=== PATIENT | female | born 1955 | race Caucasian/White ===

== ENCOUNTER 2018-03-31 07:06 | Day surgery (SDC) | payer BC, SELFPAY ==
[2018-03-31 07:33] VITALS: BP 141/83; PULSE 65; RESP 16; TEMP 37; O2SAT 100
[2018-03-31] MEDS: Lactated Ringers 1,000 ML 30 ML IV (08:10)
--- NOTE | 2018-03-31 09:38 | W.COLOREPORT ---
Date of service: 03/31/18 Time of Service: 09:39 Colonoscopy Report Date of procedure: 03/31/18 Pre-op diagnosis general: screening colonoscopy Post-op diagnosis procedure note: same Procedure: screening colonoscopy Surgeon: Hua Fuchs III Anesthesia proc note operative: MAC Pathology: none sent Complications: None Disposition: PACU Prep: José MiguelYTEFIDEL Procedure Description: After informed consent was obtained the patient was taken to the procedure room and placed in a left decubitous position. Monitors were applied and a time out was done. The patients name, date of , procedure, allergies to medications and metal in their body was reviewed. The patient was then sedated. Once sedated and comfortable a rectal exam was done. External exam was normal. Internal exam revealed a normal sphincter tone and no palpable masses. The scope was then introduced and retrofelexed. No internal hemorrhoids were identified. The scope was then advanced to the cecum minimal difficulty tight turn at the TI juction. The TI and appendiceal orifice were identified. The prep was adequate. The scope was then slowly retracted over 6 minutes back into the rectum. No Polyps were removed. The scope was removed and the patient was woken up and taken back to Same day surgery in stable condition. The patient tolerated the procedure well and there were no immediate complications. Follow up: The patient should follow up in 10 years unless they develop changes in bowel habits or other new gastrointestinal complaints.
--- NOTE | 2018-03-31 09:41 | W.PM.DSUDISC ---
Discharge Plan Disposition Patient Disposition: HOME Condition: Stable Discharge Details Reason For Visit: screening colonoscopy Attending Provider: Hua Fuchs III Primary Care Provider: Mala Thurman Home Meds and New Rx's Prescriptions: Continued bisacodyl [Dulcolax (bisacodyl)] 5 mg tablet,delayed release (DR/EC) 5 mg PO ONCE Qty: 4 RF: 0 polyethylene glycol 3350 17 gram/dose powder 255 g PO ONCE Qty: 255 RF: 0 calcium carbonate [Calcium 500] 500 MG tablet 500 mg PO DAILY RF: 0 multivitamin 1 EACH capsule 1 ea PO DAILY RF: 0 Vitamin D3 Complete 1 EACH tablet 1 ea PO DAILY RF: 0 Discharge Instructions Activity:: Activity as Tolerated Diet:: As Tolerated Discharge Orders Discharge Orders: Discharge Order (Routine); Ordered 03/31/18 Ordered By: Hua Fuchs III DS: Diagnosis Discharge Diagnosis (1) Encounter for screening colonoscopy: Status: Acute
[2018-03-31 10:07] VITALS: BP 112/80; PULSE 63; RESP 16; TEMP 36.5; O2SAT 99
== END 2018-03-31 10:35 | disposition home or self-care (01) ==
PROVIDERS: PCP Nurse Practitioner; Visit Provider Surgery
PROC: 0DJD8ZZ Inspection of Lower Intestinal Tract, Via Natural or Artificial Opening Endoscopic (ICD-10-PCS; CPT 45378; principal; 2018-03-31 08:15)
DX: Z12.11 Encounter for screening for malignant neoplasm of colon (principal)
CPT/HCPCS: 45378

== ENCOUNTER 2020-03-07 01:17 | Outpatient (CLI) | payer BC, SELFPAY ==
--- NOTE | 2020-03-07 09:41 | DI.MAMMO_ITS ---
EXAM: MG MAMMO SCREENING 60 MIN DUR CLINICAL HISTORY: SCREENING, H/O RT BREAST CA,S/P MASTECTOMY,C50.911. TECHNIQUE: Unilateral left full field digital CC and MLO mammographic images were obtained with 3D t omosynthesis and utilizing computer aided detection (CAD). There has been prior right mastectomy in 2 008 COMPARISON: Prior outside mammograms dating back to 2009, the most recent being January 2018 . FINDINGS: There are no CAD designations in left breast. There are no spiculated masses nor malignant appearing microcalcification groups. There is no signif icant architectural distortion nor skin thickening-retraction. IMPRESSION: No radiographic evidence of malignancy. BI-RADS Category 1 - Negative Breast Density - Category B - Scattered areas of fibroglandular density Breast density Category C or D implies that the patient has dense breast tissue. Dense breast tissue can make it harder to find cancer on a mammogram. Dense breast tissue is also associated with an incr eased risk of breast cancer. This information about the result of the mammogram report was provided to the patient to raise their awareness. Use this report when you speak with the patient about their risks for breast cancer, which includes their family history. At that time, you may recommend additional screening tests (Ultrasoun d or MRI) as these tests may add significant information. A negative radiographic report should not delay biopsy if a dominant or clinically suspicious mass is present. Up to ten percent of cancers are not identified on mammography. A negative report may reinforce clinical impression. Adenosis and dense breasts may obscure an underlying neoplasm. False positive reports average 6 to 10%. Patient will receive a letter notifying them of these results.
== END 2020-03-07 01:37 ==
PROVIDERS: PCP Nurse Practitioner; Visit Provider Internal Medicine Hematology & Oncology
DX: Z12.31 Encounter for screening mammogram for malignant neoplasm of breast (principal); Z85.3 Personal history of malignant neoplasm of breast; Z90.11 Acquired absence of right breast and nipple
CPT/HCPCS: 77063; 77067

== ENCOUNTER 2020-05-08 16:04 | Outpatient (REF) | payer BC, SELFPAY ==
--- NOTE | 2020-05-08 15:15 | PAPFT_PTH ---
PATIENT: Linda Arana LOC: [facility]#:[id number] AGE/SX: 65/F ROOM: RE05/08/[address]: Amanda Chase : 1955 BED: DIS: 05/08/2020 SPEC #: [id number] RECD: 05/09/20 12:59 STATUS: MAHESH REBoone #: [id number] SHANON: 05/08/20 15:[address]: Amanda Chase DEPT: COUNT INCLUDES THE [facility] Cytology RECD BY: Lorin Davies ENTERED: 05/09/20 12:59 SP TYPE: PAPFT OTHR DR: Mala Thurman Tissues: 1 - CX/ENDOCX FOR PAP SMEARS Procedures: PAP THIN PREP/UVM Screening HPV DNA PROBE Comments: [id number]
== END 2020-05-08 16:05 | disposition home or self-care (01) ==
LOC: NCHCN 16:04
PROVIDERS: PCP Nurse Practitioner; Visit Provider Family Medicine
DX: Z12.4 Encounter for screening for malignant neoplasm of cervix (principal); Z11.51 Encounter for screening for human papillomavirus (HPV); Z00.00 Encounter for general adult medical examination without abnormal findings; Z01.419 Encounter for gynecological examination (general) (routine) without abnormal findings
CPT/HCPCS: 88142; 87624

== ENCOUNTER 2021-04-09 01:02 | Outpatient (CLI) | payer BC, SELFPAY ==
--- NOTE | 2021-04-09 | DI.MAMMO_ITS ---
Exam(s) MG MAMMO SCREENING 60 MIN DUR EXAM: MG MAMMO SCREENING 60 MIN DUR CLINICAL HISTORY: screening, personal h/o breast ca,c50.911,h/o rt mastectomy TECHNIQUE: Mammograms were interpreted according to the usual protocol including computer analysis w [place] CAD system, tomosynthesis and C-view imaging. COMPARISON: 2011 through 2019 FINDINGS: Patient is status post right mastectomy. The left breast is composed of mainly fatty density , Breast Density category A. No suspicious masses or suspicious microcalcifications are seen. No skin thickening or abnormal axillary lymph nodes are seen. There has been no significant change from prior exams. IMPRESSION: BI-RADS Category 1, Negative mammogram Yearly screening mammography is recommended. Breast Density - Category A, fatty density. A negative radiographic report should not delay biopsy if a dominant or clinically suspicious mass is present. Up to ten percent of cancers are not identified on mammography. A negative report may reinforce clinical impression. Adenosis and dense breasts may obscure an underlying neoplasm. False positive reports average 6 to 10%. Patient will receive a letter notifying them of these results.
== END 2021-04-09 01:22 ==
PROVIDERS: PCP Nurse Practitioner; Visit Provider Internal Medicine Hematology & Oncology
DX: Z12.31 Encounter for screening mammogram for malignant neoplasm of breast (principal); Z85.3 Personal history of malignant neoplasm of breast; Z98.890 Other specified postprocedural states
CPT/HCPCS: 77063; 77067

== ENCOUNTER 2022-01-19 04:19 | Outpatient (CLI) | payer BC, SELFPAY ==
[2022-01-19 16:05] LABS: Abs Immature Grans 0.02 10^3/uL (0.0-0.06); Absolute Basophil Count 0.05 10^3/uL (0.0-0.2); Absolute Eosinophil Count 0.14 10^3/uL (0.0-0.7); Absolute Lymphocyte Count 2.24 10^3/uL (1.2-3.4); Absolute Monocyte Count 0.54 10^3/uL (0.1-0.8); Absolute Neutrophil Count 4.01 10^3/uL (1.2-6.7); Basophils % 0.7; HCT 41.5 % (36.0-46.0); HGB 13.7 g/dL (11.2-15.7); Immature Grans % 0.3; MCH 29.4 pg (27.0-33.0); MCV 89 fL (80-95); MPV 8.9 fL (8.0-11.0); Monocytes % 7.7; Neutrophils % 57.3; Platelet Count 259 10^3/uL (130-400); RBC 4.66 10^6/uL (3.93-5.22); RDW 12.9 % (11.7-14.6)
[2022-01-19 16:58] LABS: Ferritin 164 ng/mL (8-252)
== END 2022-01-19 04:20 | disposition home or self-care (01) ==
LOC: LBO 04:19
PROVIDERS: PCP Family Medicine; Visit Provider Surgery
DX: K62.5 Hemorrhage of anus and rectum (principal); K62.89 Other specified diseases of anus and rectum
CPT/HCPCS: 36415; 82728; 85025

== ENCOUNTER 2022-06-30 01:21 | Outpatient (CLI) | payer BC, SELFPAY ==
--- NOTE | 2022-06-30 | DI.MAMMO_ITS ---
Exam(s) MG MAMMO SCREENING 60 MIN DUR EXAM: MG MAMMO SCREENING 60 MIN DUR CLINICAL HISTORY: SCREENING,PERSONAL H/O BREAST CA WITH MASTECTOMY,S/P CHEMO AND HORMONE THER TECHNIQUE: Left full field digital CC and MLO mammographic images were obtained with 3D tomosynthesi s and utilizing computer aided detection (CAD). COMPARISON: Available for comparison. FINDINGS: The patient is status post right mastectomy. Masses/Architectural Distortion: None seen. Microcalcifications: No suspicious pleomorphic-type are seen. Skin Thickening/Nipple Retraction: None. IMPRESSION: 1. No significant interval change with no specific features of malignancy noted. 2. Unless there is more urgent need, screening mammography is recommended, as per [place] [employer] guidelines. 3. Findings were discussed with the patient on the date of the examination. BI-RADS Category 1 - Negative Breast Density - Category A - Almost entirely fatty Breast density category C or D implies that the patient has dense breast tissue. Dense breast tissue is very common and is not abnormal but dense breast tissue can make it harder to find cancer on a ma mmogram. Also, dense breast tissue may increase their breast cancer risk. This information about the result of the mammogram report was provided to the patient to raise their awareness. Use this report when you speak with the patient about their risks for breast cancer, which includes their family hist ory. At that time, you may recommend for more screening tests (Ultrasound or MRI) as they might be us eful based on their risk. A negative radiographic report should not delay biopsy if a dominant or clinically suspicious mass is present. Up to ten percent of cancers are not identified on mammography. A negative report may reinforce clinical impression. Adenosis and dense breasts may obscure an underlying neoplasm. False positive reports average 6 to 10%. Patient will receive a letter notifying them of these results.
== END 2022-06-30 01:41 ==
LOC: DI 01:21
PROVIDERS: PCP Family Medicine; Visit Provider Nurse Practitioner Family
DX: C50.911 Malignant neoplasm of unspecified site of right female breast (principal)
CPT/HCPCS: 77063; 77067

== ENCOUNTER 2023-08-26 08:23 | Outpatient (REF) | payer BC, SELFPAY ==
[2023-08-26 15:22] LABS: ALT 37 U/L (14-59); AST 30 U/L (15-37); Albumin 3.9 g/dL (3.4-5.0); Alkaline Phosphatase 92 U/L (46-116); BUN 16 mg/dL (7-18); Bilirubin, Total 0.45 mg/dL (0.2-1.0); CREATININE 0.9 mg/dL (0.55-1.02); Calcium 9.1 mg/dL (8.5-10.1); Calculated LDL 147 mg/dL (<100); Chloride 102 mmol/L (98-107); Cholesterol 236 mg/dL (<200); Estimated GFR 70.51 (mL/min/1.73m2); Glucose 100 mg/dL (74-106); HDL Cholesterol 78 mg/dL (40-60); Potassium 4.3 mmol/L (3.5-5.1); Sodium 140 mmol/L (136-145); Total Protein 7.7 g/dL (6.4-8.2); Triglyceride 58 mg/dL (<150); Vitamin D 25 Total 23.2 ng/mL (30-100)
== END 2023-08-26 08:24 | disposition home or self-care (01) ==
LOC: NCHCN 08:23
PROVIDERS: PCP Family Medicine; Visit Provider Family Medicine
DX: Z00.00 Encounter for general adult medical examination without abnormal findings (principal); E78.00 Pure hypercholesterolemia, unspecified; N18.9 Chronic kidney disease, unspecified; E55.9 Vitamin D deficiency, unspecified
CPT/HCPCS: 80053; 80061; 82306

== ENCOUNTER 2024-03-02 00:12 | Outpatient (CLI) | payer MEDICARE, SELFPAY ==
--- NOTE | 2024-03-02 | DI.US_ITS ---
Exam(s) US PELVIS TRANSVAGINAL EXAM: US PELVIS TRANSVAGINAL CLINICAL HISTORY: R10.2 Pelvis and perineal pain TECHNIQUE: Transabdominal and transvaginal imaging was performed using standard protocol. COMPARISON: US PELVIS TRANSVAG from 06/03/2016 FINDINGS: UTERUS: Anteverted. 4.9 x 2.4 x 3.4 cm Endometrium: 1 mm Myometrium: Unremarkable. Cervix: Unremarkable. OVARIES: Suboptimally visualized Right: Cyst or mass: None. Left: Cyst or mass: None. DOPPLER: Color: Symmetric and uniform flow to both ovaries. No hyperemia. None mildly dilated left parauterin e veins. No thrombus identified. CUL-DE-SAC: Free fluid: None. IMPRESSION: 1. Normal-appearing uterus with endometrial stripe within normal limits for the patient's age. 2. Unremarkable bilateral ovaries. 3. Mildly dilated left pelvic veins. DATA REPOSITORY:
== END 2024-03-02 00:32 ==
PROVIDERS: PCP Family Medicine; Visit Provider Family Medicine
DX: R10.2 Pelvic and perineal pain (principal)
CPT/HCPCS: 76830; 76856

== ENCOUNTER 2024-09-27 01:46 | Outpatient (CLI) | payer MEDICARE, SELFPAY ==
--- NOTE | 2024-09-27 11:11 | DI.MAMMO_ITS ---
Exam(s) MG MAMMO SCREENING 60 MIN DUR EXAM: MG MAMMO SCREENING 60 MIN DUR CLINICAL HISTORY: SCREENING Z12.31 PERS HX BREAST CANCER TECHNIQUE: Bilateral full field digital CC and MLO mammographic images were obtained with 3D tomosynthesis and utilizing computer aided detection (CAD). COMPARISON: Comparison is made with prior examinations. FINDINGS: The patient has had a prior right mastectomy. Masses/Architectural Distortion: No suspicious masses or areas of architectural distortion are present. Microcalcifications: No suspicious pleomorphic-type are seen. Skin Thickening/Nipple Retraction: None. IMPRESSION: 1. No significant interval change with no specific features of malignancy noted. 2. Unless there is more urgent need, screening mammography is recommended, as per [place] [employer] guidelines. 3. The findings were discussed with the patient on the date of the examination. BI-RADS Category 1 - Negative Breast Density - Category B - There are scattered areas of fibroglandular density. Breast density Category C or D implies that the patient has dense breast tissue. Dense breast tissue can make it harder to find cancer on a mammogram. Dense breast tissue is also associated with an increased risk of breast cancer. This information about the result of the mammogram report was provided to the patient to raise their awareness. Use this report when you speak with the patient about their risks for breast cancer, which includes their family history. At that time, you may recommend additional screening tests (Ultrasound or MRI) as these tests may add significant information. A negative radiographic report should not delay biopsy if a dominant or clinically suspicious mass is present. Up to ten percent of cancers are not identified on mammography. A negative report may reinforce clinical impression. Adenosis and dense breasts may obscure an underlying neoplasm. False positive reports average 6 to 10%. Patient will receive a letter notifying them of these results.
== END 2024-09-27 02:06 ==
PROVIDERS: PCP Family Medicine; Visit Provider Family Medicine
DX: Z12.31 Encounter for screening mammogram for malignant neoplasm of breast (principal); R92.323 Mammographic fibroglandular density, bilateral breasts
CPT/HCPCS: 77063; 77067

== ENCOUNTER 2024-10-03 11:34 | Outpatient (REF) | payer MEDICARE, SELFPAY ==
--- NOTE | 2024-10-03 11:30 | ENDO_PTH ---
PATIENT: Linda Arana LOC: [facility] U#:[id number] AGE/SX: 69/F ROOM: RE10/03/[address]: Florencia Benton DO : 1955 BED: DIS: 10/03/2024 SPEC #: [id number] RECD: 10/03/24 12:55 STATUS: MAHESH REQ #: [id number] SHANON: 10/03/24 11:[address]: Florencia Benton DEPT: Surgical Specimen RECD BY: Lorin Davies ENTERED: 10/03/24 12:56 SP TYPE: Endo OTHR DR: Amanda Chase Tissues: 1 - ENDOCERVICAL BX/CURRETTE 2 - CERVICAL BIOPSY Procedures: GROSS AND MICRO LEVEL 4 IMMUNOPEROXIDASE STAIN Comments: [id number]
== END 2024-10-03 11:35 | disposition home or self-care (01) ==
LOC: LBN 11:34
PROVIDERS: PCP Family Medicine; Visit Provider Obstetrics & Gynecology
DX: L90.9 Atrophic disorder of skin, unspecified (principal)
CPT/HCPCS: 88305; 88361

== ENCOUNTER → 2024-10-13 09:54 | Outpatient (BNVA) | payer MEDICARE, SELFPAY | PROVIDERS: PCP Family Medicine; Referring Provider Obstetrics & Gynecology; Visit Provider Surgery | DX: R19.4 Change in bowel habit (principal); K62.5 Hemorrhage of anus and rectum; R19.5 Other fecal abnormalities | CPT/HCPCS: 99203 ==

== ENCOUNTER 2024-11-23 07:43 | Day surgery (SDC) | payer MEDICARE, SELFPAY ==
[2024-11-23 08:02] VITALS: BP 128/78; PULSE 57; RESP 16; TEMP 36; O2SAT 98
--- NOTE | 2024-11-23 08:25 | W.PM.HP.N ---
Date of service: 11/23/24 Time of Service: 08:55 Assessment and Plan Assessment and plan (1) Change in bowel habit: Status: Acute Assessment and plan: due now for colonoscopy anyway, after normal cologuard 2y ago. she is however having change in bowel habits with irregularity of stool calibur and other symptoms. proceed w colonoscopy today. (2) PRB (rectal bleeding): Status: Acute History of Present Illness Narrative: Chief complaint: The patient presents for colonoscopy as part of evaluation of digestive issues. HPI: seen in office 10/13/2024. She has experienced irregular bowel movements for several years, with episodes of thin, soft stools lasting one to two weeks or longer, occurring more frequently as of late. She refers to them as looking like cat poop, as in thin curved strange stools. No dietary changes have been reported, but she has noticed bright red blood on toilet paper. During these episodes, she feels incomplete bowel evacuation, leading to multiple bowel movements within a few hours. She does not experience diarrhea, but the bouts of irregular stools are softer than normal. Bowel movements are sometimes normal, but the stool caliber has changed. Previous colonoscopies showed no polyps. Constipation during chemotherapy for breast cancer led to a colonoscopy with no abnormalities. She was advised to take fiber supplements like Metamucil but is unsure if she completed the course. She drinks well water. She tried MiraLAX but found it unhelpful. She has a history of breast cancer, treated with chemotherapy. sister with uterine cancer. PFSH All Active Problems Rectal bleeding (Acute) Vulvar inflammation (Acute) Altered bowel function (Acute) Encounter for colorectal cancer screening (Acute) Constipation (Acute) History of anal fissures (Acute) Rectal pain (Acute) Herpes labialis (Acute) Change in bowel habit (Acute) PRB (rectal bleeding) (Acute) Encounter for screening colonoscopy (Acute) Current Visit- YES Lyme disease (Acute 09/07/17) Invasive ductal carcinoma of right breast (Acute 09/07/17) Hypercholesteremia (Acute 09/07/17) Eczema (Acute 09/07/17) Dizziness (Acute 09/07/17) Chronic kidney disease (Acute 09/07/17) Medical History Vaginal atrophy Shoulder joint pain Normal colonoscopy (03/31/18) Normal colonoscopy 03/31/[address] Hua Fuchs, [facility], repeat 10 years [place] history - [address] Castrejon - spencer, 2008 with Cameron Chávez - negative examination Chronic kidney disease Hypercholesterolemia Invasive ductal carcinoma of right breast Abdominal pain Dizziness Lyme disease Surgical History H/O detached retina repair R eye, L eye (partial) H/O lateral meniscus repair of left knee H/O breast reconstruction R breast with transflap surgery H/O total mastectomy of right breast Hx of tonsillectomy H/O colonoscopy Social History Smoking/Tobacco Use Status: Never Smoking risk assessment performed?: Yes Alcohol Intake: current Alcohol Intake frequency: holidays/special occasions only Drug use: Never Housing: house Current gender identity: female Do you feel safe at home: Yes Do you feel safe in your relationship?: Yes Meds Allergies and Home Medications Allergies Allergy/AdvReac Type Severity Reaction Status Date / Time dicloxacillin AdvReac Severe Skin Rash Verified 11/23/24 08:00 oxycodone AdvReac Intermediate Nausea, Verified 11/23/24 08:00 vomiting polymyxin B (From Neosporin AdvReac Intermediate Skin Rash Verified 11/23/24 08:00 ([id number])) Home Medications ?Medication ?Instructions ?Recorded ?Confirmed ?Type Vitamin D3 Complete 18 mg iron-800 1 ea PO DAILY 09/07/17 11/23/24 History mcg-150 mg tablet ([id number]-yp-gcze-FA-herbal cmplx#190) multivitamin 1 ea PO DAILY 09/07/17 11/23/24 History clobetasol 0.05 % topical ointment 1 applic topical BID #60 grams 09/19/24 11/21/24 Rx bisacodyl 5 mg tablet,delayed 5 mg PO ONCE #4 tabs 10/13/24 11/21/24 Rx release (Dulcolax (bisacodyl)) polyethylene glycol 3350 17 17 g PO ONCE #238 grams 10/13/24 11/21/24 Rx gram/dose oral powder Exam Narrative Exam Narrative: awake, NAD eomi, MMM midline trachea, neck is symmetric PULM: normal resp effort, equal chest rise with respiration, no wheezing audible CARDIAC: normal PMI, no jvd, regular rate, normal perfusion abdomen is nondistended. extremities are without deformity, normal movement of all four extremities speech is clear and coherent mood and affect are congruent, no focal neurological deficits skin without rash Results Last Vital Signs Temp 96.8 F L 11/23/24 08:02 Pulse 57 L 11/23/24 08:02 Resp 16 11/23/24 08:02 BP 128/78 11/23/24 08:02 Pulse Ox 98 11/23/24 08:02 Time Spent Time spent with Patient: <40 minutes Time was spent: preparing to see the patient(eg.review tests) and counseling the patient
[2024-11-23] MEDS: Lactated Ringers 1,000 ML 80 ML IV (08:28)
--- NOTE | 2024-11-23 08:41 | ANES.PREOP_ITS ---
General Info Date of Service Date Performed: 11/23/24 Height: 5 ft 5 in Weight: 65.771 kg Body Mass Index (BMI): 24.1 Surgical Procedure: Operation Date: 11/23/24 09:20 Proposed Procedure Side Surgeon p Colonoscopy Luda Ron MD Meds Allergies and Home Medications Allergies Allergy/AdvReac Type Severity Reaction Status Date / Time dicloxacillin AdvReac Severe Skin Rash Verified 11/23/24 08:00 oxycodone AdvReac Intermediate Nausea, Verified 11/23/24 08:00 vomiting polymyxin B (From Neosporin AdvReac Intermediate Skin Rash Verified 11/23/24 08:00 ([id number])) Home Medication ?Medication ?Instructions ?Recorded Vitamin D3 Complete 18 mg iron-800 1 ea PO DAILY 09/07 mcg-150 mg tablet (oz-ih-absg-FA-herbal cmplx#190) multivitamin 1 ea PO DAILY 09/07/17 clobetasol 0.05 % topical ointment 1 applic topical BI D #60 grams 09/19/24 Current Visit Medications: Current Medications Generic Name Dose Route Start Last Admin Trade Name Freq PRN Reason Stop Dose Admin Ringer's Solution 1,000 mls @ 80 mls/hr 11/23/24 06:00 11/23/24 08:28 IV 11/23/24 23:59 80 mls/hr INFUSION FLOYD Administration IV Miscellaneous Supplies 1 each 11/23/24 06:00 Iv Access IV 11/23/24 23:59 DIRECTED FLOYD Sodium Biphosphate/Sodium Phosphate 133 ml 11/23/24 06:00 Na Phosphate Enema-Adult 133 Ml Btl [place] 11/23/24 23:59 DIRECTED PRN Sodium Chloride 0 ml 11/23/24 06:00 Normal Saline Flush 10 Ml Syr IV 11/23/24 23:59 PRN PRN Sodium Chloride 0 ml 11/23/24 06:00 Normal Saline 10 Ml Vial IJ 11/23/24 23:59 DIRECTED PRN Sterile Water 0 ml 11/23/24 06:00 Water,Injection,Sterile 10 Ml Vial IJ 11/23/24 23:59 DIRECTED PRN PFSH Active Problems Active Problems: Problem Status Onset Code Rectal bleeding Acute K62.5 Vulvar inflammation Acute N76.2 Altered bowel function Acute R19.8 Encounter for colorectal cancer screening Acute Z12.11, Z12.12 Constipation Acute K59.00 History of anal fissures Acute Z87.19 Rectal pain Acute K62.89 Herpes labialis Acute B00.1 Change in bowel habit Acute R19.4 PRB (rectal bleeding) Acute K62.5 Encounter for screening colonoscopy Acute Z12.11 Lyme disease Acute 09/07/17 A69.20 Invasive ductal carcinoma of right breast Acute 09/07/17 C50.911 Hypercholesteremia Acute 09/07/17 E78.00 Eczema Acute 09/07/17 L30.9 Dizziness Acute 09/07/17 R42 Chronic kidney disease Acute 09/07/17 N18.9 Medical History Medical History Vaginal atrophy Shoulder joint pain Normal colonoscopy (03/31/18) Normal colonoscopy 03/31/[address] Hua Fuchs, [facility], repeat 10 years [place] history - [address] Castrejon - spencer, 2008 with Cameron Chávez - negative examination Chronic kidney disease Hypercholesterolemia Invasive ductal carcinoma of right breast Abdominal pain Dizziness Lyme disease Surgical History Surgical History H/O detached retina repair R eye, L eye (partial) H/O lateral meniscus repair of left knee H/O breast reconstruction R breast with transflap surgery H/O total mastectomy of right breast Hx of tonsillectomy H/O colonoscopy Tobacco Smoking/Tobacco Use Status: Never Alcohol Alcohol Intake: current Alcohol intake frequency: holidays/special occasions only Substance Use Substance use: Never Vital Signs and Lab Results Vital Signs Most Recent Vital Signs in EMR: Most Recent Vital Signs Temp Pulse Resp BP Pulse Ox 36.0 C L 57 L 16 128/78 98 11/23/24 08:02 11/23/24 08:02 11/23/24 08:02 11/23/24 08:02 11/23/24 08:02 Anesthesia Assessment and Plan Anesthesia History Personal History: No History of Anesthesia Complications Family History: No Family History of Anesthesia Complications Exercise Tolerance Exercise Tolerance: Metabolic Equivalents>4 Pertinent Negatives Pertinent Negatives: No Symptoms of GERD, No Major Cardiovascular Symptoms or Complaints, No Major Pulmonary Symptoms or Complaints and No History of CVA/TIA Cardiac & Pulmonary Exam Cardiac Exam: Normal S1/S2 Heart Sounds Pulmonary Exam: Clear Bilateral Breath Sounds Implantable Cardiac Device Does patient have a Pacemaker or an ICD?: No Airway Exam Known Difficult Airway: No Mallampati Class: 2 Mouth Opening: Normal (> 3cm) Thyromental Distance: Greater than 3 cm Neck Range of Motion: Full ROM Neck Circumference: Normal Teeth Condition: Normal Dentition Tooth Numberin 1. missing 2. missing 3. missing ASA Classification ASA Score: ASA 2 Emergency Case?: No NPO Status NPO Status: NPO Clears >2 hours, Solids >8 hours Anesthesia Plan Resuscitation Status: Full Code Anesthesia Technique: General Anesthesia Airway Planned: Natural Airway Monitors Used: Standard Monitors
[2024-11-23 08:43] VITALS: BMI 24.1
--- NOTE | 2024-11-23 08:59 | W.PM.DSUDISC ---
Date of service: 11/23/24 Discharge Plan Disposition Patient Disposition: Home Condition: Stable Discharge Details Attending Provider: Luda Ron Primary Care Provider: Amanda Chase Recommendations for Follow Up Recommended tests to be ordered by follow up provider: Timing of next colonoscopy- 10 years Home Meds and New Rx's Prescriptions: Continued clobetasol 0.05 % ointment 1 applic topical BID Qty: 60 1RF Rx Instructions: Apply a pea-sized amount to the vulva twice daily. multivitamin 1 EACH capsule 1 ea PO DAILY Vitamin D3 Complete 1 EACH tablet 1 ea PO DAILY Discontinued bisacodyl [Dulcolax (bisacodyl)] 5 mg tablet,delayed release (DR/EC) 5 mg PO ONCE Qty: 4 0RF Rx Instructions: Take per colonoscopy instructions provided by ordering providers office polyethylene glycol 3350 17 gram/dose powder 17 g PO ONCE Qty: 238 0RF Rx Instructions: Take per colonoscopy instructions provided by ordering providers office Discharge Instructions Additional Instructions: Normal colonoscopy. No polyps or masses. No dverticulosis but you have a tortuous colon as the likely cause of irregular stools. Tortuous colon means the colon follows a more winding path with sharper turns, more difficult for stools to pass on their own. Fiber supplementation has improved the bowel habits. continue with this to help stay regular and keep the colon healthy. Next screening colonoscopy will be due in 10 years. Rectal bleeding likely hemorrhoidal. Correcting bowel habits will help with this. Stand Alone Forms: Anesthesia Discharge Inst., Colonoscopy Post Instructions, Stewart Mccormack (DSU) Activity:: Activity as Tolerated Diet:: As Tolerated Discharge Orders Discharge Orders: Discharge Order (Routine); Ordered 11/23/24 Ordered By: Luda Ron DS: Diagnosis Discharge Diagnosis (1) Change in bowel habit: Status: Acute (2) Tortuous colon: Status: Acute
--- NOTE | 2024-11-23 09:03 | W.COLOREPORT ---
Date of service: 11/23/24 Time of Service: 09:42 Colonoscopy Report Pre-op diagnosis general: change in stool habits, rectal bleeding Post-op diagnosis procedure note: same Procedure: Colonoscopy Surgeon: Luda Ron Anesthesia Type: General:No Airway Estimated blood loss (mL): 0 Pathology: none sent Complications: None Prep: Miralax/Dulcolax (good) Procedure Description: Informed consent was obtained and the patient was taken to the procedure area. The patient was placed in left lateral decubitus position on the procedure table. Timeout was performed. Anesthesia was induced. A lubricated colonoscope was inserted through the anus and passed to the cecum. The cecum was identified by the ileocecal valve and the appendiceal orifice. The scope was then slowly withdrawn and the colonic and rectal mucosa examined. The colon was tortuous. There are no colon or rectal mass lesions, polyps, AVMs. There is no inflammatory change. No diverticulosis was seen. The scope was retroflexed in the anorectal junction examined. Uncomplicated internal hemorrhoids present. Assessment and plan; Normal colonoscopy. Tortuous colon as the likely cause of irregular stools without fiber. Fiber supplementation has improved he bowel habits. Next screening colonoscopy will be due in 10 years. Rectal bleeding likely hemorrhoidal. Correcting bowel habits will help with this.
[2024-11-23 09:51] VITALS: BP 95/76; PULSE 54; RESP 12; TEMP 36.3; O2SAT 97
[2024-11-23 10:20] VITALS: BP 117/69; PULSE 46; RESP 14; TEMP 36.2; O2SAT 100
--- NOTE | 2024-11-23 16:12 | W.ANESPOSTOP ---
Postoperative Evaluation Date, Time and Location Date Performed: 11/23/24 Time Performed: 09:53 Patient Location: Day Surgery Unit Vital Signs Most Recent Imported Vital Signs: Most Recent Vital Signs Temp Pulse Resp BP Pulse Ox 36.2 C L 46 L 14 117/69 100 11/23/24 10:20 11/23/24 10:20 11/23/24 10:20 11/23/24 10:20 11/23/24 10:20 Pain Score Most Recent Pain Score: Most Recent Pain Score Pain Level 0 11/23/24 10:20 Assessment Mental Status: Arousable with meaningful communication Airway and Respiratory Function: Patent airway with normal (patient baseline) respiratory exam Cardiovascular Function: Hemodynamically Stable Hydration Status: Adequately Hydrated Nausea & Vomiting: No Nausea or Vomiting Pain: Pt. Denies Any Pain Peripheral Nerve Block: Patient did not receive a nerve block
== END 2024-11-23 10:37 | disposition home or self-care (01) ==
LOC: SUR 07:43
PROVIDERS: PCP Family Medicine; Visit Provider Surgery
PROC: 0DJD8ZZ Inspection of Lower Intestinal Tract, Via Natural or Artificial Opening Endoscopic (ICD-10-PCS; CPT 45378; principal; 2024-11-23 09:15)
DX: R19.4 Change in bowel habit (principal); K62.5 Hemorrhage of anus and rectum; Q43.8 Other specified congenital malformations of intestine; K56.2 Volvulus
CPT/HCPCS: 45378; J2003; J2704